=== PATIENT | male | born 1950 | race Hispanic/Latino ===

== ENCOUNTER 2023-09-15 10:24 | Day surgery (SDC) | payer OTHER ==
--- NOTE | 2023-09-01 16:27 | RAD REPORT ---
EXAM DESCRIPTION: RAD - Chest Pa And Lat (2 Views) - 09/01/2023 4:14 pm CLINICAL HISTORY: Pre op pending meatal dilation and TURP Chest pain. COMPARISON: No comparisons FINDINGS: The lungs are hyperexpanded with linear scarring or atelectasis involving the left lung ba se anteriorly. The heart is mildly enlarged in size. No displaced fractures. Small hiatal hernia. IMPRESSION: No acute or concerning finding suspected.
[2023-09-01 16:36] LABS: Absolute Eosinophils 0.2 K/uL (0-0.5); Absolute Lymphocytes (CBC) 1.6 K/uL (0.7-4.9); Absolute Monocytes 0.6 K/uL (0.1-1.3); Absolute Neutrophil 5.1 K/uL (1.8-8.0); Basophils % 0.2 % (0-1.3); Eosinophils % 2.5 % (0-4.4); Hemoglobin 12.1 g/dL (13.6-17.9); Lymphocytes % 21.2 % (15.3-44.8); MCH 30.9 pg (27.0-35.0); MCHC 33.7 g/dL (32.0-36.0); MCV 91.5 fL (80-100); Monocytes % 7.4 % (3.3-12.3); Neutrophils % 68.7 % (41.7-73.7); Nucleated Red Blood Cells % 0.1 % (0-0); Platelets 205 thou/uL (152-406); RBC Red Blood Cell Count 3.93 M/uL (4.33-5.43); Red Cell Distribution Width 14.4 % (12.1-15.2)
[2023-09-01 16:45] LABS: Anion Gap 10.5 mEq/L (5.0-15.0); Potassium 3.5 mEq/L (3.5-5.1)
--- NOTE | 2023-09-02 12:47 | EKG ---
Test Date: 2023-09-01 Test Time: 15:56:16 Unemployment Claims Adjudicator: OBED MEASUREMENT RESULTS: Intervals: Rate: 85 ND: 208 QRSD: 98 QT: 390 QTc: 464 Moran: P: 19 ND: 208 QRS: -14 T: 41 INTERPRETIVE STATEMENTS: Normal sinus rhythm Normal ECG No previous ECG available for comparison Electronically Signed On 09-02-23 12:45:31 CDT by Oswald Leonard
[2023-09-15] MEDS: NA CHLORIDE 0.9% 1,000 ML ONE (11:10)
[2023-09-15] MEDS ORDERED: ONDANSETRON 4 MG/2 ML VIAL ONE ×2 (13:12→13:13)
[2023-09-15] MEDS ORDERED: propofoL 200 MG/20 ML VIAL IV ONE (13:13)
[2023-09-15] MEDS ORDERED: LIDOCAINE 1% MPF 5 ML VIAL ONE (13:13)
[2023-09-15] MEDS ORDERED: FENTANYL CITR 100 MCG/2 ML ONE ×2 (13:13→15:02)
[2023-09-15] MEDS ORDERED: ROCURONIUM 50 MG/5 ML VIAL IV ONE (13:13)
[2023-09-15] MEDS ORDERED: dexAMETHasone 10 MG/ML VIAL ONE (14:29)
[2023-09-15] MEDS: AMPICILLIN SODIUM 2 GM/VIAL VIAL ONE (14:30)
[2023-09-15] MEDS ORDERED: SUGAMMADEX SODIUM 200 MG/2 ML VIAL IV ONE (14:52)
[2023-09-15] MEDS ORDERED: SUCCINYLCHOLINE 20 MG/ML (10 ML) IV ONE (14:52)
[2023-09-15] MEDS ORDERED: AMPICILLIN SODIUM 2 GM in NA CHLORIDE 0.9% 100 ML IVPB ONE (15:00)
[2023-09-15] MEDS ORDERED: Gentamicin Inj 240 MG in NA CHLORIDE 0.9% 100 ML IVPB ONE (15:00)
[2023-09-15] MEDS ORDERED: NA CHLORIDE 0.9% 1,000 ML ONE (16:05)
[2023-09-15] MEDS ORDERED: ALBUTEROL INHALER 200 PUFF/6.7 GM IH ONE (16:42)
[2023-09-15] MEDS: ALBUTEROL 2.5 MG/3 ML NEB SOL ONE ×2 (16:53→18:10)
[2023-09-15] MEDS ORDERED: PHENAZOPYRIDINE 100MG TAB PO ONE (17:09)
[2023-09-15] MEDS ORDERED: CODEINE 30MG/APAP 300MG TAB PO PRN (17:09)
[2023-09-15] MEDS ORDERED: OXYBUTYNIN ER 5 MG TAB PO ONE (17:36)
[2023-09-15] MEDS: HYDROMORPHONE HCL 1 MG/ML INJ ONE (17:38)
--- NOTE | 2023-09-15 17:39 | RAD REPORT ---
EXAM DESCRIPTION: RAD - Chest Single View - 09/15/2023 5:27 pm CLINICAL HISTORY: r/o infiltrate or sign of mucus plugging, desat Chest pain. COMPARISON: <Comparisons> FINDINGS: Portable technique limits examination quality. Linear opacities in the medial right lung base likely represent atelectasis. The lungs are otherwise clear. The heart is mildly enlarged in size. No displaced fractures.
[2023-09-15] MEDS ORDERED: FUROSEMIDE 20 MG/ 2ML VIAL ONE (17:50)
[2023-09-15] MEDS: FUROSEMIDE 20 MG/ 2ML VIAL IV ONE (17:52)
[2023-09-15] MEDS: OXYBUTYNIN ER 5 MG TAB PO ONE (18:33)
[2023-09-15 19:31] VITALS: BP 162/77; TEMP 97.5; O2SAT 95
--- NOTE | 2023-09-15 19:48 | OP ---
Surgeon: SHOSHANA OLIVA Preoperative Diagnoses: 1.Meatal stenosis. 2.BPH with lower urinary tract obstruction and symptoms. Postoperative Diagnoses: 1.Meatal stenosis. 2.BPH with lower urinary tract obstruction and symptoms. Principal Procedures: 1.Meatotomy. 2.Urethral dilation using sounds. 3.Bipolar transurethral resection of the prostate. Indication For Procedure: Mr. Dan presented to the Urology Clinic and was initially managed wit h combination Flomax and finasteride for obstruction due to BPH. Eventually, solifenacin was added t o try to improve his LUTS, but they were persistent. He eventually underwent cystoscopic evaluation, which revealed meatal stenosis requiring dilation in the office in order to complete the cystoscopy. He subsequently underwent cystoscopic evaluation, which revealed significant interdigitating latera l lobar hypertrophy and a transrectal ultrasound revealed the presence of an enlarged prostate approx imately 95 g. As a result, he was counseled on the option of proceed with surgical therapy given the failure of medical management and he elected to proceed with bipolar TURP and management of his meat us. Of note, immediately prior to the procedure, the patient suggested he had significant improvemen t in his LUTS since the meatal dilation and potentially with additional time on the finasteride, but he was interested in discontinuing the finasteride and other medical therapy as opposed to indefinite use and elected to proceed with the bipolar TURP. Procedure Note In Detail: The patient was consented in the preoperative holding area before being tr ansferred to the operative suite where general anesthesia was induced. He was given ampicillin 2 g a nd gentamicin 240 mg IV antimicrobial prophylaxis. Pneumo boots were provided for DVT prophylaxis. He was placed in the lithotomy position, padded and secured to the table appropriately, and his genit delio were prepped with Hibiclens before being draped in standard fashion. The case was begun using u rethral sounds to dilate the meatus and fossa navicularis from 18-Macedonian to 28-Macedonian. At this point , because of persistent tightness in the inferior portion of the meatus that was starting to tear sli ghtly, I employed a straight snap in the ventral meatus to devascularize the area and then incised th e devascularized tissue in between completing a meatotomy. This did nicely open up the meatus down i nto the fossa navicularis ventrally, and I was able to dilate the meatus subsequently with a 30-Frenc h sound with relative ease. I then utilized a visual obturator to traverse the urethra and enter his bladder with ease. I surveyed the bladder and there were no papillary mucosal lesions, foreign bodi es, or stones. There was significant intraluminal projection of the prostate, mostly emanating from the patient's left side. As a result, I switched the visual obturator of the 26-Macedonian resectoscope sheath to the resectoscope bipolar thick loop and began resection starting on that left side. I rese cted the intraluminally projecting component of the prostate tissue in the left lateral lobe at the b ladder neck and eventually taking that to the anterior zone of the prostate. I then extended into th e mid zone of the prostate from posterior to anterior and eventually at the apex of the prostate from posterior to anterior. I then turned my attention to the patient's right side where I similarly res ected the bladder neck from posterior to anterior before moving to the mid zone of the prostate and e ventually to the apex. At different points, Ellik evacuation of prostate chips was performed, and ad equate and active hemostasis was performed at each step along the way for any arterial bleeding vesse ls. I then continued the resection intermittently emptying his bladder, so that any intraluminally p rojecting tissue within fall in and could be adequately resected until the prostate channel was widel y patent even with the bladder completely decompressed. Again, I Ellik evacuated all prostate chips and ensured each chip was directly removed under direct visualization. I then ensured the entirety o f the prostate fossa was completely hemostatic with the bladder completely decompressed before ultima tely retrograde filling his bladder with saline and removing the resectoscope. I then placed a 24-Fr ench three-way Moe catheter into his bladder with ease and placed 30 cc of sterile water in the bal loon. This was then connected to very slow drip CBI and the returning efflux was crystal clear. The patient was then taken out of the lithotomy position, awakened from general anesthesia, transferred to a stretcher, before being transferred to the recovery room in good condition. Complications: None. Discharge Disposition: He should follow up in the Urology Clinic on Thursday for a voiding trial and h e will be discharged with 3 days of an antimicrobial to cover him through that voiding trial. A subs equent followup should be established with me about 3 months later for interval assessment. He will be instructed to continue the finasteride for at least 6 months from the date of surgery, or until ea march of this year. He may discontinue the tamsulosin/Flomax after about 1 month postoperative ly. Whether he continues on the solifenacin/VESIcare or not will depend on if he has persistent irri tative overactive bladder lower urinary symptoms, in which case he may take the VESIcare. SILVIANO/MODL Voice ID: [id number] Report ID: [id number]
== END 2023-09-15 19:33 | disposition home or self-care (01) ==
LOC: OR 10:24
PROVIDERS: ATTEND Urology
PROC: 0T7D8ZZ Dilation of Urethra, Via Natural or Artificial Opening Endoscopic (ICD-10-PCS; 2023-09-15)
PROC: 0VT08ZZ Resection of Prostate, Via Natural or Artificial Opening Endoscopic (ICD-10-PCS; principal; 2023-09-15 12:45)
DX: N40.1 Benign prostatic hyperplasia with lower urinary tract symptoms (principal); N35.911 Unspecified urethral stricture, male, meatal; N13.8 Other obstructive and reflux uropathy; I10 Essential (primary) hypertension; E11.9 Type 2 diabetes mellitus without complications; Z80.42 Family history of malignant neoplasm of prostate
CPT/HCPCS: 93005; 87088; 85025; 87086; 80048; 36415; 85610; 82947 ×2; 71045; 71046; 52601; J2704; J1940; J2001; J7613 ×2; J1580; J3010 ×2; J1100; J1170; J2405 ×2; J0290; J7030 ×2; 88304